=== PATIENT | female | born 1940 | race Caucasian/White ===

== ENCOUNTER 2018-08-28 10:09 | Inpatient (IN) | payer OTHER, MEDICARE ==
[2018-08-28] VITALS (9 sets, daily range): BP systolic 128–159; BP diastolic 62–79
[~2018-08-28] VITALS: Ht 154.9 cm; Wt 66.2 kg
[2018-08-28] MEDS ORDERED: METO25TA6 PO (12:00)
[2018-08-28] MEDS ORDERED: ASPI-1159 PO (12:00)
[2018-08-28] MEDS ORDERED: LISI-604 PO (12:00)
[2018-08-28] MEDS ORDERED: OMEP10CA4 PO (12:00)
[2018-08-28] MEDS ORDERED: BENA5TAB6 PO (12:00)
[2018-08-28] MEDS ORDERED: HYDR-4134 PO (12:02)
[2018-08-28] MEDS ORDERED: METF-414 PO (12:02)
[2018-08-28] MEDS ORDERED: CINN500C5 PO (12:02)
[2018-08-28] MEDS ORDERED: MIDAZOLAM HCL 2 MG/2 ML VIAL ONE (13:10)
[2018-08-28] MEDS ORDERED: IODIXANOL 320MG/ML 100 ML BOTTLE IV ONE ×2 (13:11→14:19)
[2018-08-28] MEDS ORDERED: LIDOCAINE HCL 1% 20ML VIAL (Pyxis) INJ ONE (13:11)
[2018-08-28] MEDS ORDERED: FENTANYL CITRATE/PF 50MCG/ML 2ML VIAL ONE (13:11)
[2018-08-28] MEDS ORDERED: IOHEXOL-300 100 ML BOTTLE ONE (14:07)
[2018-08-28] MEDS ORDERED: HEPARIN SODIUM 1,000 UNIT/1ML VIAL IV ONE (14:28)
[2018-08-28] MEDS ORDERED: ACETAMINOPHEN 325MG TABLET PO PRN (15:15)
[2018-08-28] MEDS ORDERED: ONDANSETRON HCL 4MG/2ML INJ IV PRN (15:15)
[2018-08-28] MEDS ORDERED: ATROPINE SULFATE 1MG/10ML SYR IV PRN (15:15)
[2018-08-28] MEDS ORDERED: CLOPIDOGREL 75MG TABLET ONE (15:19)
[2018-08-28] MEDS ORDERED: ASPIRIN 325MG TABLET ONE (15:19)
[2018-08-28] MEDS: OMEPRAZOLE 20MG CAPSULE EXTENDED RELEASE PO SCH (16:06)
[2018-08-29] VITALS (7 sets, daily range): BP systolic 100–151; BP diastolic 56–83
[2018-08-29] MEDS: OMEPRAZOLE 20MG CAPSULE EXTENDED RELEASE PO SCH (05:54)
[2018-08-29 08:22] LABS: BASOPHILS % 0.5 % (0.0-2.0); EOSINOPHILS % 2.5 % (0.0-5.0); HEMATOCRIT. 41.5 % (36.0-48.0); HEMOGLOBIN. 14.4 g/dL (12.0-16.0); MEAN CORPUSCULAR HEMOGLOBIN 30.4 pg (28.0-32.0); MEAN CORPUSCULAR VOLUME 87.5 fL (81.0-99.0); MEAN PLATELET VOLUME 10.2 fl (7.4-10.4); MONOCYTES % 10.6 % (2.0-8.0); NEUTROPHILS % 55.4 % (40.0-76.0); PLATELET 195 x1000/uL (130-400); RED BLOOD CELL COUNT 4.74 mill/uL (4.2-5.4); RED CELL DISTRIBUTION WIDTH 12.9 % (11.6-14.6)
[2018-08-29 08:29] LABS: CHLORIDE 104 mEq/L (98-107)
[2018-08-29] MEDS ORDERED: CLOPIDOGREL 75MG TABLET PO SCH (09:00)
[2018-08-29] MEDS ORDERED: ASPIRIN 325MG TABLET PO SCH (09:00)
== END 2018-08-29 11:04 | disposition home or self-care (01) | DRG 253 ==
LOC: CCL 10:09 → 3WST 10:10
PROVIDERS: ADMIT Specialist; ATTEND Specialist
PROC: 047L35Z Dilation of Left Femoral Artery with Two Drug-eluting Intraluminal Devices, Percutaneous Approach (ICD-10-PCS; principal; 2018-08-28)
PROC: B41G1ZZ Fluoroscopy of Left Lower Extremity Arteries using Low Osmolar Contrast (ICD-10-PCS; 2018-08-28)
DX: E11.51 Type 2 diabetes mellitus with diabetic peripheral angiopathy without gangrene (principal); I70.92 Chronic total occlusion of artery of the extremities; I11.9 Hypertensive heart disease without heart failure; R00.1 Bradycardia, unspecified; I70.202 Unspecified atherosclerosis of native arteries of extremities, left leg; Z79.02 Long term (current) use of antithrombotics/antiplatelets
CPT/HCPCS: 36415; 37226; 75710; 80048; 82962; 85347; C1714; C1725; C1760; C1769; C1887; C1893; C1894; J1644; J2250; J3010; J3490; Q9967

== ENCOUNTER 2018-11-19 08:58 | Inpatient (IN) | payer MEDICARE ==
[~2018-11-19] VITALS: Ht 154.9 cm; Wt 66.2 kg
[~2018-11-19 08:58] MED LIST: ASPI-1159 PO; BENA5TAB6 PO; CINN500C5 PO; HYDR-4134 PO; LISI-604 PO; METF-414 PO; METO25TA6 PO; OMEP10CA4 PO
[2018-11-19] MEDS ORDERED: HEPARIN SODIUM 1,000 UNIT/1ML VIAL IV ONE (10:10)
[2018-11-19] MEDS ORDERED: LIDOCAINE HCL 1% 20ML VIAL (Pyxis) INJ ONE (10:41)
[2018-11-19] MEDS ORDERED: MIDAZOLAM HCL 2 MG/2 ML VIAL ONE (10:46)
[2018-11-19] MEDS ORDERED: FENTANYL CITRATE/PF 50MCG/ML 2ML VIAL ONE (10:46)
[2018-11-19] MEDS ORDERED: IOHEXOL-300 100 ML BOTTLE ONE (11:08)
[2018-11-19] MEDS ORDERED: ASPIRIN 325MG TABLET ONE (12:48)
[2018-11-19] MEDS ORDERED: CLOPIDOGREL 75MG TABLET ONE (12:49)
[2018-11-19] MEDS ORDERED: ONDANSETRON HCL 4MG/2ML INJ IV PRN (13:00)
[2018-11-19] MEDS ORDERED: ACETAMINOPHEN 325MG TABLET PO PRN (13:00)
[2018-11-19] MEDS ORDERED: ATROPINE SULFATE 1MG/10ML SYR IV PRN (13:00)
[2018-11-19 14:00] VITALS: BP 133/59
[2018-11-19 16:18] VITALS: BP 123/64
[2018-11-19 16:48] VITALS: BP 125/66
[2018-11-19 18:00] VITALS: BP 148/35
[2018-11-19 20:00] VITALS: BP 117/60
[2018-11-19 22:00] VITALS: BP 148/73
[2018-11-20] VITALS (8 sets, daily range): BP systolic 122–157; BP diastolic 69–84
[2018-11-20 07:38] LABS: BASOPHILS % 0.6 % (0.0-2.0); EOSINOPHILS % 3.8 % (0.0-5.0); HEMATOCRIT. 42.2 % (36.0-48.0); HEMOGLOBIN. 14.5 g/dL (12.0-16.0); LYMPHOCYTES % 27.1 % (20.0-50.0); MEAN CORPUSCULAR HEMOGLOBIN 29.6 pg (28.0-32.0); MEAN CORPUSCULAR VOLUME 86.4 fL (81.0-99.0); MEAN PLATELET VOLUME 10.9 fl (7.4-10.4); MONOCYTES % 10.7 % (2.0-8.0); NEUTROPHILS % 57.8 % (40.0-76.0); PLATELET 186 x1000/uL (130-400); RED BLOOD CELL COUNT 4.88 mill/uL (4.2-5.4); RED CELL DISTRIBUTION WIDTH 12.2 % (11.6-14.6)
[2018-11-20] MEDS ORDERED: CLOPIDOGREL 75MG TABLET PO SCH (09:00)
[2018-11-20] MEDS ORDERED: ASPIRIN 325MG TABLET PO SCH (09:00)
[2018-11-20] MEDS ORDERED: HYDROCODONE/ACETAMINOPHEN 5/325MG TABLET PO SCH (11:15)
[2018-11-20] MEDS ORDERED: POTASSIUM CHLORIDE 10MEQ TABLET SR PO SCH (12:00)
== END 2018-11-20 12:02 | disposition home or self-care (01) | DRG 254 ==
LOC: CCL 08:58 → 3WST 08:59
PROVIDERS: ADMIT Specialist; ATTEND Specialist
PROC: 047K3ZZ Dilation of Right Femoral Artery, Percutaneous Approach (ICD-10-PCS; principal; 2018-11-19)
DX: E11.51 Type 2 diabetes mellitus with diabetic peripheral angiopathy without gangrene (principal); I10 Essential (primary) hypertension; E78.5 Hyperlipidemia, unspecified; I11.9 Hypertensive heart disease without heart failure; I70.201 Unspecified atherosclerosis of native arteries of extremities, right leg; Z79.4 Long term (current) use of insulin; Z79.84 Long term (current) use of oral hypoglycemic drugs; Z79.02 Long term (current) use of antithrombotics/antiplatelets
CPT/HCPCS: 36415; 37224; 37228; 75710; 80048; 82962; 85347; 93005; C1725; C1760; C1769; C1893; C1894; J1644; J2250; J3010; J3490; Q9967

== ENCOUNTER 2019-01-07 08:45 | Day surgery (SDC) | payer MEDICARE ==
[~2019-01-07] VITALS: Ht 156.2 cm; Wt 67.6 kg
[~2019-01-07 08:45] MED LIST changes: -ASPI-1159 PO; +ASPI-1393 PO; -OMEP10CA4 PO; +OMEP10CA5 PO
[2019-01-07] MEDS ORDERED: LIDOCAINE HCL 1% 20ML VIAL (Pyxis) INJ ONE (10:02)
[2019-01-07] MEDS ORDERED: IODIXANOL 320MG/ML 100 ML BOTTLE IV ONE (10:02)
[2019-01-07] MEDS ORDERED: MIDAZOLAM HCL 2 MG/2 ML VIAL ONE (10:18)
[2019-01-07] MEDS ORDERED: FENTANYL CITRATE/PF 50MCG/ML 2ML VIAL ONE (10:18)
[2019-01-07] MEDS ORDERED: BENA20TA10 PO (10:33)
[2019-01-07] MEDS ORDERED: CLOP75TA4 PO (10:40)
[2019-01-07] MEDS ORDERED: LOPHC2 PO (10:40)
[2019-01-07] MEDS ORDERED: ONDANSETRON HCL 4MG/2ML INJ IV PRN (11:30)
[2019-01-07] MEDS ORDERED: ATROPINE SULFATE 1MG/10ML SYR IV PRN (11:30)
[2019-01-07] MEDS ORDERED: ACETAMINOPHEN 325MG TABLET PO PRN (11:30)
== END 2019-01-07 17:45 | disposition home or self-care (01) ==
LOC: CCL 08:45
PROVIDERS: ATTEND Specialist
DX: E11.51 Type 2 diabetes mellitus with diabetic peripheral angiopathy without gangrene (principal); I70.212 Atherosclerosis of native arteries of extremities with intermittent claudication, left leg; K21.9 Gastro-esophageal reflux disease without esophagitis; I11.9 Hypertensive heart disease without heart failure; E11.9 Type 2 diabetes mellitus without complications; I10 Essential (primary) hypertension; R00.1 Bradycardia, unspecified; Z79.899 Other long term (current) drug therapy; Z79.82 Long term (current) use of aspirin
CPT/HCPCS: 36246; 75716; 82962; 99152; C1760; C1769; C1893; J1644; J2250; J3010; J3490; Q9967; 75710